=== PATIENT | female | born 1940 | race Caucasian/White ===

== ENCOUNTER → 2016-08-14 | Outpatient (CLI) | payer OTHER ==
[~2016-08-14] MED LIST: CALCTAB5 PO; CHOL100010 PO; COEN1CAP37 PO; EZET10TA63 PO; FEXO1TAB46 PO; FISH OIL PO; FLAX OIL PO; FLEX-A-MIN PO; HYDR12.56 PO; LISI-725 PO; LORA-741 PO; MULT-506 PO; NAPR1TAB9 PO; POLYSOL4 OPB; PRLSR20 PO
--- NOTE | 2016-08-14 14:50 | DIAGNOSTIC IMAGING REPORT ---
MRI OF THE CERVICAL SPINE WITHOUT IV CONTRAST CLINICAL HISTORY: Cervical spondylosis. Myelopathy. COMPARISON STUDY: CT scan of the cervical spine dated 01/23/2013. TECHNIQUE: MRI of the cervical spine is performed utilizing various T1 and T2-weighted sequences in the axial and sagittal planes. IV contrast was not administered for this examination. The examination is degraded by motion artifact. FINDINGS: Cervical spine: Vertebral body height and alignment are maintained throughout the cervical spine. Marrow signal intensity is heterogeneous. Anterior osteophytes are noted throughout. A large hemangioma is seen in the body of C7. The atlantodental articulation appears maintained. The spinous processes appear intact. No destructive bony lesion is suspected. Intervertebral discs: There is degenerative disc desiccation and loss of height throughout the cervical spine. Loss of height is severe at C5-C6 and C6-C7. Spinal cord: The cervical spinal cord is normal in morphology and signal intensity. C2-C3: Unremarkable. C3-C4: A posterior disc osteophyte complex effaces the ventral subarachnoid space. Uncovertebral and facet arthropathy cause moderate left and minimal right neural foraminal stenosis. C4-C5: A posterior disc osteophyte complex abuts the ventral cord. Uncovertebral and facet arthropathy cause mild left neural foraminal stenosis. C5-C6: A posterior disc osteophyte convex effaces the ventral cord. Uncovertebral and facet arthropathy cause mild to moderate bilateral neural foraminal stenosis. C6-C7: A posterior disc osteophyte complex effaces the ventral cord. Uncovertebral and facet arthropathy cause moderate left and mild to moderate right neural foraminal stenosis. C7-T1: Unremarkable. Soft tissues: The prevertebral and paraspinous soft tissues are within normal limits. Brain parenchyma: Partially imaged brain parenchyma at the skull base is normal in appearance. IMPRESSION: 1. Motion degraded examination. 2. Multilevel cervical spondylosis as above, greatest at C5-C6 and C6-C7 where posterior disc osteophyte complexes efface the ventral cord. See discussion for detailed level by level analysis. 3. The cervical spinal cord appears normal in morphology and signal intensity. 4. No destructive bony process is identified. Dictated: 08/14/2016 2:38 PM Transcribed: 08/14/2016 2:49 PM [email or web address] Electronically signed by: Gus Schwartz M.D. 08/14/2016 3:04 PM Dictated Date/Time: 08/14/2016 2:38 PM
== END | disposition home or self-care (01) ==
LOC: C.MRI 13:34
PROVIDERS: ATTEND Physical Medicine & Rehabilitation
DX: M47.12 Other spondylosis with myelopathy, cervical region (principal)

== ENCOUNTER → 2016-11-07 | Outpatient (CLI) | payer OTHER ==
[2016-11-07 12:02] LABS: BASO % 0.4 %; BASO ABS # 0.02 K/uL (0-0.2); COMPLETE YES; EOS % 3.3 %; HEMATOCRIT 41.9 % (37-47); IG% 0.2 %; LYMPH ABS # 1.26 K/uL (1.2-3.4); MEAN CORPUSCULAR HEMOGLOBIN 26.6 pg (25-34); MEAN CORPUSCULAR HGB CONC 31.3 g/dl (32-36); MEAN PLATELET VOLUME 9.9 fL (7.4-10.4); MONO % 9.3 %; NEUT % 60.8 %; PLATELET COUNT 259 K/uL (130-400); RED BLOOD COUNT 4.93 M/uL (4.2-5.4); WHITE BLOOD COUNT 4.84 K/uL (4.8-10.8)
[2016-11-07 12:22] LABS: ESTIMATED AVERAGE GLUCOSE 134 mg/dl; HA1C FLAG Normal (Normal)
[2016-11-07 12:28] LABS: ALT/SGPT 46 U/L (12-78); BLOOD UREA NITROGEN 13 mg/dl (7-18); BUN/CREATININE RATIO 11.4 (10-20); CARBON DIOXIDE 30 mmol/L (21-32); CHLORIDE 103 mmol/L (98-107); CHOLESTEROL 225 mg/dl (0-200); GLUCOSE 107 mg/dl (70-99); POTASSIUM 3.8 mmol/L (3.5-5.1); SODIUM 140 mmol/L (136-145); TRIGLYCERIDES 178 mg/dl (0-150); VERY LOW DENSITY LIPOPROT CALC 36 mg/dl
[2016-11-07 12:38] LABS: ALKALINE PHOSPHATASE 76 U/L (45-117); AST/SGOT 32 U/L (15-37); CHOLESTEROL/HDL RATIO 4.6; HDL CHOLESTEROL 49 mg/dl; LDL CHOLESTEROL CALCULATED 140 mg/dl; THYROID STIMULATING HORMONE 0.331 uIu/ml (0.300-4.500)
== END | disposition home or self-care (01) ==
LOC: C.LAB1850 10:53
PROVIDERS: ATTEND Internal Medicine
DX: I10 Essential (primary) hypertension (principal); R20.0 Anesthesia of skin; E78.5 Hyperlipidemia, unspecified; R73.09 Other abnormal glucose; E55.9 Vitamin D deficiency, unspecified

== ENCOUNTER → 2016-12-02 | Outpatient (CLI) | payer OTHER ==
[~2016-12-02] MED LIST changes: +GADAVIST IV PRN
--- NOTE | 2016-12-02 13:50 | DIAGNOSTIC IMAGING REPORT ---
MRI brain BRAIN COMBO FOR IAC CLINICAL HISTORY: HEARING Loss, tinnitus TECHNIQUE: Multiaxial MRI acquisition COMPARISON STUDY: None FINDINGS: Multiple foci of increased signal within the periventricular deep white matter regions. This consistent with chronic small vessel change. Ventricular system is midline. Internal auditory canals are normal. No evidence evidence for abnormal postcontrast enhancement involving the 7th or 8th nerves. Post contrast dural and or meningeal enhancement. This is nonspecific but potentially relates to a prior episode of hypoxia or diminished intracranial CSF pressure. Ventricular system is again midline. IMPRESSION: 1. Moderate chronic small vessel change of the periventricular deep white matter regions. 2. No evidence for an acute ischemic event. 3. No abnormal characteristics of the internal auditory canals. 4. Postcontrast dural enhancement possibly on the basis of a prior episode of diminished intracranial pressure and/or hypotension. Electronically signed by: Brian Bentley M.D. 12/02/2016 1:48 PM Dictated Date/Time: 12/02/2016 1:44 PM
== END | disposition home or self-care (01) ==
LOC: C.OPENMRI 12:20
DX: H91.90 Unspecified hearing loss, unspecified ear (principal); H93.19 Tinnitus, unspecified ear

== ENCOUNTER → 2016-12-24 | Outpatient (CLI) | payer OTHER ==
[~2016-12-24] MED LIST changes: -GADAVIST IV PRN
== END | disposition home or self-care (01) ==
LOC: C.MAMM 13:55
PROVIDERS: ATTEND Internal Medicine
DX: M85.851 Other specified disorders of bone density and structure, right thigh (principal); M85.852 Other specified disorders of bone density and structure, left thigh

== ENCOUNTER → 2017-05-19 | Outpatient (CLI) | payer OTHER ==
--- NOTE | 2017-05-19 14:33 | DIAGNOSTIC IMAGING REPORT ---
TWO VIEW CHEST CLINICAL HISTORY: Dyspnea. FINDINGS: PA and lateral chest radiographs are correlated with chest CT dated 01/23/2013. The cardiomediastinal silhouette is unremarkable. There is mild atherosclerotic calcification of the thoracic aorta. The lungs and pleural spaces are clear. There is no pneumothorax. The skeletal structures are osteopenic. The bony thorax appears intact. IMPRESSION: No active disease in the chest. Electronically signed by: Gus Schwartz M.D. 05/19/2017 2:31 PM Dictated Date/Time: 05/19/2017 2:31 PM
[2017-05-19 14:49] LABS: BASO % 0.1 %; BASO ABS # 0.02 K/uL (0-0.2); COMPLETE YES; EOS % 0.1 %; HEMATOCRIT 41.4 % (37-47); IG% 0.4 %; LYMPH % 11.8 %; LYMPH ABS # 1.61 K/uL (1.2-3.4); MEAN CELL VOLUME 85.2 fL (80-100); MEAN CORPUSCULAR HEMOGLOBIN 27.8 pg (25-34); MEAN CORPUSCULAR HGB CONC 32.6 g/dl (32-36); MEAN PLATELET VOLUME 10.5 fL (7.4-10.4); MONO % 7.7 %; NEUT % 79.9 %; PLATELET COUNT 257 K/uL (130-400); RED BLOOD COUNT 4.86 M/uL (4.2-5.4); WHITE BLOOD COUNT 13.59 K/uL (4.8-10.8)
[2017-05-19 15:21] LABS: ALT/SGPT 42 U/L (12-78); BLOOD UREA NITROGEN 29 mg/dl (7-18); BUN/CREATININE RATIO 24.6 (10-20); CARBON DIOXIDE 30 mmol/L (21-32); CHLORIDE 100 mmol/L (98-107); CREATININE 1.18 mg/dl (0.60-1.20); GLUCOSE 108 mg/dl (70-99); POTASSIUM 3.7 mmol/L (3.5-5.1); SODIUM 137 mmol/L (136-145)
[2017-05-19 15:23] LABS: ALB/GLOB RATIO 1.1 (0.9-2); ALKALINE PHOSPHATASE 87 U/L (45-117); AST/SGOT 21 U/L (15-37)
== END | disposition home or self-care (01) ==
LOC: C.RAD1850 13:53
PROVIDERS: ATTEND Internal Medicine
DX: R06.02 Shortness of breath (principal)